=== PATIENT | female | born 1965 | race Caucasian/White ===

== ENCOUNTER 2016-10-01 21:41 | Inpatient (IN) | payer OTHER ==
[~2016-10-01] VITALS: Ht 160 cm; Wt 94.4 kg
[~2016-10-01 21:41] MED LIST: PRAVACHOL10 MG PO; VICODIN,LORT1 TABLET PO
[2016-10-01 23:09] LABS: EOSINOPHIL (%) 1.7 % (0-5); EOSINOPHIL COUNT 0.1 K/uL (0-0.3); HEMATOCRIT 49.2 % (36.0-46.0); IMMATURE GRANULOCYTE (%) 0.1 % (0.0-0.7); IMMATURE GRANULOCYTE COUNT 0.1 K/uL; LYMPHOCYTE COUNT 2.7 K/uL (1.0-2.8); MCH 32.3 PG (29.0-34.0); MCV 92.3 FL (83-99); MEAN PLAT.VOLUME 9.8 uM^3 (9.5-12.4); MONOCYTE (%) 4.9 % (3-12); MONOCYTE COUNT 0.4 K/uL (0-0.8); NEUTROPHIL (%) 59.9 % (45-76); NEUTROPHIL COUNT 4.8 K/uL (1.8-6.4); PLATELET COUNT 250 K/uL (156-360); RBC DIS.WIDTH-CV 12.7 % (11.8-14.6); RED BLOOD COUNT 5.33 M/uL (3.80-5.20)
[2016-10-01 23:18] LABS: CHLORIDE 104 mEq/L (99-109); POTASSIUM 3.6 mEq/L (3.7-5.4); SODIUM 141 mEq/L (136-147)
[2016-10-01 23:21] LABS: GLUCOSE 147 mg/dL (70-99)
[2016-10-01 23:22] LABS: ANION GAP 13 MEQ/L (2-14); TOTAL BILIRUBIN 0.3 mg/dL (0.0-1.0)
[2016-10-01 23:24] LABS: ALKALINE PHOSPHATASE 92 IU/L (3-129); GFR ESTIMATE (CALCULATED) > 59 mL/min/
[2016-10-01 23:25] LABS: UREA NITROGEN (BUN) 7 mg/dL (9-23)
[2016-10-01 23:28] LABS: LIPASE 10 U/L (1.0-51.0)
[2016-10-02] MEDS ORDERED: PREDNISONE10 M1 PO (00:10)
[2016-10-02] MEDS ORDERED: AMOX TR-K CLV1 EAC4 PO (00:12)
[2016-10-02 01:49] VITALS: BP 166/78
[2016-10-02 07:55] VITALS: BP 141/73
[2016-10-02 17:05] VITALS: BP 181/102
[2016-10-02 22:43] VITALS: BP 158/86
[2016-10-03 06:35] LABS: EOSINOPHIL COUNT 0.1 K/uL (0-0.3); HEMATOCRIT 45.1 % (36.0-46.0); LYMPHOCYTE COUNT 2.7 K/uL (1.0-2.8); MCH 32.6 PG (29.0-34.0); MCHC 34.8 G/DL (30.0-36.0); MCV 93.6 FL (83-99); MEAN PLAT.VOLUME 10.3 uM^3 (9.5-12.4); MONOCYTE COUNT 0.3 K/uL (0-0.8); NEUTROPHIL (%) 42.9 % (45-76); NEUTROPHIL COUNT 2.3 K/uL (1.8-6.4); PLATELET COUNT 212 K/uL (156-360); RBC DIS.WIDTH-CV 12.8 % (11.8-14.6); RBC DIS.WIDTH-SD 43.7 % (39-53); RED BLOOD COUNT 4.82 M/uL (3.80-5.20)
[2016-10-03 06:36] LABS: WHITE BLOOD COUNT 5.4 K/uL (4.1-10.2)
[2016-10-03 06:53] LABS: ANION GAP 6 MEQ/L (2-14); CHLORIDE 109 MEQ/L (99-109); GFR ESTIMATE (CALCULATED) > 59 mL/min/; POTASSIUM 4.3 MEQ/L (3.7-5.4); SAMPLE HEMOLYSIS CHECK 0; SAMPLE ICTERIC CHECK 0; SAMPLE LIPEMIA CHECK 0; SODIUM 140 MEQ/L (136-147); UREA NITROGEN (BUN) 5 mg/dL (9-23)
[2016-10-03 06:56] LABS: GLUCOSE 95 mg/dL (70-99)
[2016-10-03 08:50] VITALS: BP 171/74
[2016-10-03 16:11] VITALS: BP 165/72; BP 165/82
[2016-10-03 22:15] VITALS: BP 182/89
[2016-10-03 23:36] VITALS: BP 151/86
[2016-10-04 08:03] VITALS: BP 188/96
[2016-10-04] MEDS ORDERED: PREDNISONE5 M1 PO (08:58)
[2016-10-04 11:38] VITALS: BP 160/84
[2016-10-04] MEDS ORDERED: AMLODIPINE BESYL5 MG PO (13:42)
[2016-10-04] MEDS ORDERED: HYDROCODON-ACE1 EAC7 PO (13:43)
[2016-10-04] MEDS ORDERED: LEVAQUIN500 MG PO (13:43)
== END 2016-10-04 14:45 | disposition home or self-care (01) | DRG 600 ==
LOC: EME 21:41 → EDOF 23:59 → 5EAST 23:59
PROVIDERS: Emergency Medicine; Internal Medicine
PROC: 0HD5XZZ Extraction of Chest Skin, External Approach (ICD-10-PCS; principal; 2016-10-03)
DX: N61.1 Abscess of the breast and nipple (principal); E87.2 Acidosis; F17.210 Nicotine dependence, cigarettes, uncomplicated; E86.0 Dehydration; Z90.5 Acquired absence of kidney; B96.89 Other specified bacterial agents as the cause of diseases classified elsewhere
CPT/HCPCS: 76642; 80048; 80053; 80202; 83605; 83690; 85025; 87040; 87070; 87075; 87077; 87186; 87205; 99281; 99285; J0360; J0696; J1650; J2270; J3010; J3370; J7030; J7050

== ENCOUNTER 2017-01-12 20:15 | Emergency (ER) | payer OTHER ==
[~2017-01-12] VITALS: Ht 157.5 cm; Wt 89.2 kg
[~2017-01-12 20:15] MED LIST changes: +AMLODIPINE BESYL5 MG PO; +AMOX TR-K CLV1 EAC4 PO; +HYDROCODON-ACE1 EAC7 PO; +LEVAQUIN500 MG PO; +PREDNISONE10 M1 PO; +PREDNISONE5 M1 PO
[2017-01-12 21:38] LABS: ADD MIUA? YES; BILIRUBIN NEGATIVE; BLOOD NEGATIVE; COLOR YELLOW ((YELLOW)); GLUCOSE (STRIP) NEGATIVE; KETONES NEGATIVE; LEUKOCYTES TRACE; NITRITE POSITIVE; PROTEIN (STRIP) 100; SPECIFIC GRAVITY 1.015 (1.000-1.030); UROBILINOGEN 0.2 MG/DL (0.2-1.0)
[2017-01-12 21:56] LABS: AMPHETAMINE NEGATIVE (500 ng/mL); BARBITURATES NEGATIVE (200 ng/mL); BENZODIAZEPINES NEGATIVE (150 ng/mL); COCAINE PRESUMPTIVE POSITIVE (150 ng/mL); INTERNAL CONTROLS VALID? YES; METHADONE PRESUMPTIVE POSITIVE (200 ng/mL); METHAMPHETAMINE NEGATIVE (500 ng/mL); OPIATES (MORPHINE) NEGATIVE (100 ng/mL); OXYCODONE NEGATIVE (100 ng/mL); PHENCYCLIDINE NEGATIVE (25 ng/mL); PROPOXYPHENE NEGATIVE (300 ng/mL); THC CANNABINOIDS NEGATIVE (50 ng/mL); TRICYCLIC ANTIDEPRESSANTS NEGATIVE (300 ng/mL)
[2017-01-12 21:57] LABS: ADD MEDTOX COMMENT Y
[2017-01-12 21:58] LABS: BACTERIA NONE SEEN /HPF; EPITHELIAL CELLS RARE /HPF; MUCUS TRACE /LPF; RED BLOOD CELLS 0-5 /HPF (0-5); WHITE BLOOD CELLS 15-20 /HPF (0-5)
[2017-01-12] MEDS ORDERED: MACROBID100 MG PO (23:11)
[2017-01-12 23:42] VITALS: BP 156/78
== END 2017-01-12 23:47 | disposition home or self-care (01) ==
LOC: EME → EDBD 20:15 → EME 20:15
PROVIDERS: Emergency Medicine
DX: T40.1X1A Poisoning by heroin, accidental (unintentional), initial encounter (principal); R09.2 Respiratory arrest; F14.90 Cocaine use, unspecified, uncomplicated; N39.0 Urinary tract infection, site not specified
CPT/HCPCS: 81003; 84999; 99281; 99285

== ENCOUNTER 2018-03-17 09:37 | Emergency (ER) | payer OTHER ==
[~2018-03-17] VITALS: Ht 157.5 cm; Wt 87.9 kg
[~2018-03-17 09:37] MED LIST changes: +MACROBID100 MG PO
[2018-03-17] MEDS ORDERED: ELIMITE 5% CREA60 GM TP (11:35)
[2018-03-17 11:52] VITALS: BP 106/64
== END 2018-03-17 11:54 | disposition home or self-care (01) ==
LOC: EME 09:37
DX: B86 Scabies (principal); I10 Essential (primary) hypertension; R00.1 Bradycardia, unspecified; F17.200 Nicotine dependence, unspecified, uncomplicated
CPT/HCPCS: 99281; 99283